=== PATIENT | female | born 1975 | race Caucasian/White ===

== ENCOUNTER → 2017-01-13 | Outpatient (CLI) | payer MEDICAID ==
--- NOTE | 2017-01-13 15:33 | US ---
EXAMINATION TYPE: US pelvic complete DATE OF EXAM: 01/13/2017 COMPARISON: NONE CLINICAL HISTORY: 41-year-old female N92.0 Excessive Or D25.9 Frequent Menstruation. History of uteri ne fibroids, 0 TECHNIQUE: Transabdominal (TA) Date of LMP: 01/04/2017 FINDINGS: Uterus: Anteverted measuring 18.7 x 9.4 x 15.8 cm. The uterus is enlarged and bulky with multiple fo deepthi fibroids throughout, largest measuring 7.4 cm. This largest fibroid is present posteriorly and ap pears to have mass effect on to the endometrium, possible submucosal component. Endometrial Stripe: 0.6 cm, within normal limits. Right Ovary: 2.9 x 2.0 x 2.3 cm with a 1.5 cm dominant follicle or functional cyst. Left Ovary: 4.9 x 2.7 x 3.3 cm with a 2.7 cm dominant follicle or functional cyst. No evident adnexal abnormality or cul-de-sac free fluid. IMPRESSION: 1. Bulky fibroid uterus with the largest fibroid measuring 7.4 cm. This is located posteriorly and ei ther has a submucosal component or has prominent mass effect on to the myometrium. Consider MRI for f ibroid mapping as indicated. 2. Physiologic changes in the ovaries.
== END | disposition home or self-care (01) ==
LOC: RADUSWWP 14:11
PROVIDERS: ATTEND Obstetrics & Gynecology
DX: D25.9 Leiomyoma of uterus, unspecified (principal)
CPT/HCPCS: 76856

== ENCOUNTER → 2017-04-07 | Outpatient (CLI) | payer MEDICAID ==
[2017-04-07 11:53] LABS: CH 28.1; CHCM 31.8; HDW 2.46; HGB 13.7 gm/dL (11.4-16.0); MCH 28.4 pg (25.0-35.0); MCHC 31.9 g/dL (31.0-37.0); Mean Platelet Volume 8.8; RBC 4.83 m/uL (3.80-5.40); RDW 14.9 % (11.5-15.5); WBC 10.4 k/uL (3.8-10.6); WBC (Perox) 11.47
[2017-04-07 11:58] LABS: Anion Gap 6 mmol/L; Blood Urea Nitrogen 8 mg/dL (7-17); Calcium 9.1 mg/dL (8.4-10.2); Carbon Dioxide 23 mmol/L (22-30); Chloride 109 mmol/L (98-107); Glucose 92 mg/dL (74-99); Non-African American GFR(MDRD) 54 (>60 ml/min/1.73 sqM); Potassium 4.7 mmol/L (3.5-5.1); Sodium 138 mmol/L (137-145)
[2017-04-07 14:11] LABS: Add Differential Manual Differential
[2017-04-07 14:14] LABS: Nucleated Red Blood Cells 0 /100 WBC (0-0); Total Cells Counted 100
== END ==
LOC: LABPAT 10:45
PROVIDERS: ATTEND Obstetrics & Gynecology
DX: Z01.812 Encounter for preprocedural laboratory examination (principal)
CPT/HCPCS: 36415; 80048; 85025

== ENCOUNTER 2017-04-12 05:53 | Inpatient (IN) | payer MEDICAID ==
[2017-04-08 09:59] VITALS: BMI 39.9
--- NOTE | 2017-04-09 13:37 | P.HPOB ---
History of Present Illness H&P Date: 04/09/17 Chief Complaint: fibroid uterus 41 year old G0 presents for total abdominal hysterectomy for fibroid uterus and menorrhagia. Review of Systems All systems: negative Constitutional: Denies chills, Denies fever Eyes: denies blurred vision, denies pain Ears, nose, mouth and throat: Denies headache, Denies sore throat Cardiovascular: Denies chest pain, Denies shortness of breath Respiratory: Denies cough Gastrointestinal: Denies abdominal pain, Denies diarrhea, Denies nausea, Denies vomiting Genitourinary: Denies dysuria, Denies hematuria Musculoskeletal: Denies myalgias Integumentary: Denies pruritus, Denies rash Neurological: Denies numbness, Denies weakness Psychiatric: Denies anxiety, Denies depression Endocrine: Denies fatigue, Denies weight change 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 Past Anesthesia/Blood Transfusion Reactions: No Reported Reaction Past Psychological History: Anxiety Smoking Status: Current every day smoker Past Alcohol Use History: None Reported Additional Past Alcohol Use History / Comment(s): Has smoked 1 PPD for last 10- 15 yrs. Past Drug Use History: None Reported - Past Family History Father Family Medical History: Cancer Mother Family Medical History: Deep Vein Thrombosis (DVT), Pulmonary Embolus Medications and Allergies Home Medications Medication Instructions Recorded Confirmed Type No Known Home Medications [No 04/08/17 04/08/17 History Known Home Medications] Allergies Allergy/AdvReac Type Severity Reaction Status Date / Time bupropion HCl Allergy Rash/Hives Verified 04/08/17 09:47 [From Wellbutrin] Exam Osteopathic Statement: *. No significant issues noted on an osteopathic structural exam other than those noted in the History and Physical/Consult. HEart: RRR Lungs: CTAB Abdomen: soft, nontender Extremeties: neg nichol's Assessment and Plan (1) Fibroid uterus Status: Acute Code(s): D25.9 - LEIOMYOMA OF UTERUS, UNSPECIFIED SNOMED Code( s): 83137170 Plan: 1. total abdominal hysterectomy.
[~2017-04-12 05:53] MED LIST: DEXAMETHASONE SOD PHOSPHATE 10 MG/ML 1 ML VIAL IV ONE; HYDROmorphone 0.5 MG/0.5 ML SYRINGE IVP PRN; MIDAZOLAM 2 MG/2 ML VIAL IV PRN; ONDANSETRON 4 MG/2 ML VIAL IVP ONE; ceFAZolin IN SWFI 2 GM/20 ML SYRINGE IVP ONE
[2017-04-12] MEDS ORDERED: LIDOCAINE 1% 20 ML VIAL (10MG/ML) FOR IV START INTRADERMA ONE (06:47)
[2017-04-12] MEDS: LACTATED RINGERS 1,000 ML IV SCH ×2 (06:47→21:13)
[2017-04-12] MEDS ORDERED: fentaNYL (PF) 50 MCG/ML 2 ML AMP ONE (07:18)
[2017-04-12] MEDS ORDERED: NEOSTIGMINE 1 MG/ML 10 ML VIAL ONE (07:18)
[2017-04-12] MEDS ORDERED: GLYCOPYRROLATE 0.2 MG/ML 2 ML VIAL ONE (07:18)
[2017-04-12] MEDS ORDERED: ROCURONIUM BROMIDE 10 MG/ML 10 ML VIAL IV ONE (07:18)
[2017-04-12] MEDS ORDERED: LIDOCAINE 1% INJ 10MG/ML (20 ML MDV) ONE (07:18)
[2017-04-12] MEDS ORDERED: HYDROmorphone (PF) 1 MG/ML ONE (07:18)
[2017-04-12] MEDS ORDERED: SUCCINYLCHOLINE CHLORIDE 100 MG/5 ML SYR IV ONE (07:18)
[2017-04-12] MEDS ORDERED: PROPOFOL 10 MG/ML 20 ML VIAL IV ONE (07:18)
[2017-04-12] MEDS ORDERED: MIDAZOLAM 2 MG/2 ML VIAL ONE (07:18)
[2017-04-12] MEDS ORDERED: SODIUM CHLORIDE 0.9% 50 ML with ceFAZolin 2,000 MG IV ONE ×2 (07:30)
--- NOTE | 2017-04-12 09:25 | P.OP ---
Date of Procedure: 04/12/17 Preoperative Diagnosis: 1. Fibroid uterus 2. Menorrhagia Postoperative Diagnosis: 1. Fibroid uterus 2. Menorrhagia 3. Right ovarian cyst Procedure(s) Performed: Total abdominal hysterectomy, aspiration of right ovarian cyst Anesthesia: HOMER Surgeon: Ana Maria Piedra General Ledger Accountant #1: Angel Luis Emery Estimated Blood Loss (ml): 300 IV fluids (ml): 1,500 Urine output (ml): 75 Pathology: other (Uterus, cervix) Condition: stable Disposition: PACU Operative Findings: Enlarged fibroid uterus, simple right ovarian cyst Description of Procedure: Patient is taken the operating room where general anesthesia was obtained without difficulty. She is prepped and draped in normal sterile fashion in dorsal supine position with. Urinary catheter was placed. Exam of the patient noted the uterus to be only up to the umbilicus. A vertical incision was made from just below the umbilicus to the suprapubic region. This was carried through the underlying cutaneous tissue to the fascia. The fascia was also incised in the midline and elevated with Silvana clamps and the rectus muscles were in the midline and the peritoneum was identified. The peritoneum was entered in a digital manner. The incision was extended superiorly and inferiorly with the Metzenbaums. The uterus was then delivered through the incision. Both ovaries appeared normal but there was a simple cyst on the right ovary. A hole was made in the right ovarian cyst and clear fluid was drained. Bilateral cornu were grasped with Padmini clamps for retraction. The uterus was noted to have several intramural and pedunculated and subserosal fibroids. The right utero-ovarian and round ligaments were clamped with the Estefania, cut and suture ligated. The broad ligament was taken down and then the uterine artery was clamped cut and suture ligated. This was then done on the left side as well where the left utero-ovarian and round ligaments were clamped with Estefania, cut and suture ligated. The broad ligament was taken down and the uterine artery was clamped cut and suture ligated. The bladder flap was then created using the Metzenbaums and the bladder was peeled off the underlying cervix. The broad ligament was continued to be taken down the level of the cervix by clamp cut and suture ligating bilaterally. The right uterosacral ligament was then clamped cut and suture ligated. The left uterosacral ligament was clamped cut and suture ligated. The uterus and cervix were amputated off the underlying vagina. Specimen was handed off. The vaginal cuff was grasped with Silvana clamps. The corners were reinforced with 0 Vicryl and then the rest of the vaginal cuff was closed with 0 Vicryl in a running locked fashion. The pelvis was irrigated. Some areas of oozing along the suture line were repaired with 0 Vicryl. Excellent hemostasis was assured. All instruments and sponges were removed and a good count was obtained. The peritoneum was reapproximated using 0 Vicryl in a running fashion. The fascia and muscles were closed together using 0 PDS looped stitch in a running fashion. The subcu tissues closed with 3-0 Vicryl in a running fashion. The skin was closed marie. Patient to our procedure well, sponge and instrument counts are correct 2. She was taken to recovery room in stable condition.
[2017-04-12] MEDS: HYDROmorphone 1 MG/ML 1 ML SYRINGE IVP PRN ×2 (09:30→09:38)
[2017-04-12] MEDS: fentaNYL (PF) 50 MCG/ML 2 ML AMP IV ONE ×2 (09:50→10:00)
[2017-04-12] MEDS ORDERED: ONDANSETRON 4 MG/2 ML VIAL IVP ONE (10:00)
[2017-04-12] MEDS ORDERED: ONDANSETRON 4 MG/2 ML VIAL IVP PRN (10:43)
[2017-04-12] MEDS ORDERED: diphenhydrAMINE 50 MG/ML 1 ML VIAL IVP PRN (10:43)
[2017-04-12] MEDS ORDERED: HYDROmorphone PCA 5 MG/25 ML SYRINGE IV PRN (10:43)
[2017-04-12] MEDS ORDERED: ZOLPIDEM 5 MG TAB PO PRN (10:43)
[2017-04-12] MEDS ORDERED: METOCLOPRAMIDE 5 MG/ML 2 ML VIAL IVP PRN (10:43)
[2017-04-12] MEDS ORDERED: NALOXONE 0.4 MG/ML 1 ML VIAL IV PRN (10:43)
[2017-04-12] MEDS ORDERED: SIMETHICONE 80 MG CHEWABLE PO PRN (10:43)
[2017-04-12] MEDS: NICOTINE 14MG/24HR PATCH TRANSDERM SCH (14:35)
[2017-04-12] MEDS: KETOROLAC 30 MG/ML 1 ML VIAL IVP PRN ×2 (14:58→22:13)
[2017-04-12] MEDS: SENNOSIDES-DOCUSATE SODIUM 1 EACH TAB PO SCH (21:13)
[2017-04-13] MEDS: KETOROLAC 30 MG/ML 1 ML VIAL IVP PRN ×2 (05:33→14:06)
[2017-04-13] MEDS: LACTATED RINGERS 1,000 ML IV SCH ×2 (05:34→18:01)
[2017-04-13 06:38] LABS: Basophils # (A) 0.1 k/uL (0-0.2); Basophils % (A) 0 %; CHCM 31.5; Eosinophils # (A) 0.1 k/uL (0-0.7); Eosinophils % (A) 1 %; HCT 39.2 % (34.0-46.0); HDW 2.48; HGB 12.4 gm/dL (11.4-16.0); Luc # (Auto) 0.16; Luc % (Auto) 1; Lymphocytes # (A) 4.4 k/uL (1.0-4.8); Lymphocytes % (A) 32 %; MCH 28.3 pg (25.0-35.0); MCHC 31.7 g/dL (31.0-37.0); MCV 89.5 fL (80.0-100.0); Mean Platelet Volume 8.3; Monocytes # (A) 0.8 k/uL (0-1.0); Monocytes % (A) 6 %; Neutrophils # (A) 8.1 k/uL (1.3-7.7); Neutrophils % (A) 60 %; RBC 4.38 m/uL (3.80-5.40); RDW 14.9 % (11.5-15.5); WBC 13.6 k/uL (3.8-10.6); WBC (Perox) 14.54
[2017-04-13] MEDS: SENNOSIDES-DOCUSATE SODIUM 1 EACH TAB PO SCH ×2 (08:31→20:43)
[2017-04-13] MEDS ORDERED: Acetaminophen-Codeine 300-30mg TAB PO PRN (09:39)
--- NOTE | 2017-04-13 10:01 | P.PN ---
Progress Note - Text Progress Note Date: 04/13/17 S/P LEONELA POD #1 Pt seen and examined. Pain controlled with SLOT HOST and toradol. Has ambulated to restroom and voided once. no flatus yet. Denies nausea vomiting, fever chills, chest pain, shortness of breath or calf pain. VSS HEart: RRR Lungs: mild crackles in left lung base abdomen: soft, nondistended, expected post op tenderness Incision: Clean, dry, intact with marie, some bruising noted at the inferior portion. Extremeties: neg nichol's labs: wbcs 13.6, hgb 12.4 A1. S/P LEONELA P1. increase ambulation 2. advance diet with flatus
[2017-04-13] MEDS: NICOTINE 14MG/24HR PATCH TRANSDERM SCH (14:07)
[2017-04-13] MEDS: Acetaminophen-Codeine 300-30mg TAB PO PRN (17:56)
[2017-04-13 22:03] VITALS: RESP 20
[2017-04-13] MEDS ORDERED: Acetaminophen-Codeine 300-30mg TAB ONE (23:13)
[2017-04-14] MEDS ORDERED: Acetaminophen-Codeine 300-30mg TAB ONE (03:20)
[2017-04-14] MEDS ORDERED: IBUPROFEN 600 MG TAB PO PRN (07:15)
[2017-04-14] MEDS: NICOTINE 14MG/24HR PATCH TRANSDERM SCH (08:12)
[2017-04-14 09:55] VITALS: BP 110/60; PULSE 85; TEMP 97.4
[2017-04-14] MEDS: Acetaminophen-Codeine 300-30mg TAB PO PRN (12:42)
--- NOTE | 2017-04-14 13:21 | P.DS ---
Providers Date of admission: 04/12/17 05:53 Expected date of discharge: 04/14/17 Attending physician: Ana Maria Piedra Primary care physician: Patrick Floyd - Discharge Diagnosis(es) (1) Fibroid uterus Current Visit: Yes Status: Resolved (2) Status post total abdominal hysterectomy Current Visit: Yes Status: Acute Hospital Course: Patient presented for total abdominal hysterectomy for fibroid uterus and menorrhagia. She underwent this procedure without complication. Postoperatively this she did quite well. Her pain was controlled first with a Dilaudid CUSTOMER SUPPORT EXECUTIVE and Toradol. She was changed to Tylenol 3 and Motrin postoperative day #1 and was tolerating clear liquids until she passed flatus or stretcher regular diet. She is ambulating and voiding without difficulty. She denies headache, fever, chills, nausea, vomiting, chest pain, shortness of breath or calf pain. Her incision is clean, dry, intact with marie. She'll have to follow up in my office in 1 week for staple removal. Discharge instructions were given. She is not to drive for 1 week. She knows not having intercourse or anything in her vagina for at least 6-8 weeks. She not to lift anything heavier than a gallon of milk for at least 2 weeks. I will see her in 1 week but she knows to call if there is any increase in fever, abnormal discharge or increase in bleeding. Patient Condition at Discharge: Stable Plan - Discharge Summary Discharge Rx Participant: Yes New Discharge Prescriptions: No Action No Known Home Medications [No Known Home Medications] Discharge Medication List No Known Home Medications [No Known Home Medications] 04/08/17 [History]
== END 2017-04-14 14:16 | disposition home or self-care (01) | DRG 743 ==
LOC: 2ORWHC 05:53 → 6PED 09:20
PROVIDERS: ADMIT Obstetrics & Gynecology; ATTEND Obstetrics & Gynecology
PROC: 0U900ZZ Drainage of Right Ovary, Open Approach (ICD-10-PCS; principal; 2017-04-12 07:30)
PROC: 0UT90ZZ Resection of Uterus, Open Approach (ICD-10-PCS; principal; 2017-04-12 07:30)
DX: D25.1 Intramural leiomyoma of uterus (principal); D25.2 Subserosal leiomyoma of uterus; F17.200 Nicotine dependence, unspecified, uncomplicated; N83.291 Other ovarian cyst, right side; N92.0 Excessive and frequent menstruation with regular cycle
CPT/HCPCS: 81025; 85025; 86850; 86900; 86901; 88307

== ENCOUNTER → 2020-03-25 | Outpatient (CLI) | payer MEDICAID ==
--- NOTE | 2020-03-27 10:07 | MM ---
Reason for exam: screening (asymptomatic). Last mammogram was performed 4 years and 3 months ago. History: Patient is nulliparous. Family history of breast cancer in maternal grandmother. Took hormonal contraceptives for 2 years beginning at age 19. Physical Findings: A clinical breast exam by your physician is recommended on an annual basis and results should be correlated with mammographic findings. MG 3D Screening Mammo W/Cad Bilateral CC and MLO view(s) were taken. Prior study comparison: January 07, 2016, bilateral MG 3d screening mammo w/cad. There are scattered fibroglandular densities. No significant changes when compared with prior studies. ASSESSMENT: Benign, BI-RAD 2 RECOMMENDATION: Routine screening mammogram of both breasts in 1 year.
== END | disposition home or self-care (01) ==
LOC: RADMAMWWP 12:03
PROVIDERS: ATTEND Obstetrics & Gynecology
DX: Z12.31 Encounter for screening mammogram for malignant neoplasm of breast (principal); Z80.3 Family history of malignant neoplasm of breast
CPT/HCPCS: 77063; 77067

== ENCOUNTER → 2021-03-18 | Outpatient (CLI) | payer MEDICAID, OTHER | END | disposition home or self-care (01) | LOC: LABWHC1 13:24 | PROVIDERS: ATTEND Emergency Medicine | DX: Z20.822 Contact with and (suspected) exposure to COVID-19 (principal) | CPT/HCPCS: 87635 ==

== ENCOUNTER → 2021-04-28 | Outpatient (CLI) | payer MEDICAID ==
[2021-04-28 10:56] LABS: Basophils # (A) 0.09 X 10*3/uL (0.00-0.10); Basophils % (A) 0.7 %; Eosinophils # (A) 0.14 X 10*3/uL (0.04-0.35); Eosinophils % (A) 1.1 %; HCT 47.4 % (37.2-46.3); HGB 15.2 g/dL (12.0-15.0); Lymphocytes # (A) 4.89 X 10*3/uL (0.90-5.00); MCHC 32.1 g/dL (32.0-37.0); MCV 87.3 fL (80.0-97.0); Mean Platelet Volume 10.4 fL (9.5-12.2); Monocytes # (A) 0.61 X 10*3/uL (0.20-1.00); Neutrophils # (A) 6.48 X 10*3/uL (1.80-7.70); Platelet Count 411 X 10*3/uL (140-440); RBC 5.43 X 10*6/uL (4.10-5.20); RDW 14.7 % (11.5-14.5); WBC 12.24 X 10*3/uL (4.50-10.00)
[2021-04-28 11:55] LABS: ALT 14 U/L (8-44); AST 16 U/L (13-35); African American GFR (CKD) 104.2 (60.0-200.0); Albumin 4.1 g/dL (3.8-4.9); Alkaline Phosphatase 132 U/L (41-126); BUN/Creat Ratio 6.69 Ratio (12.00-20.00); Blood Urea Nitrogen 5.3 mg/dL (9.0-27.0); Calcium 9.1 mg/dL (8.7-10.3); Carbon Dioxide 23.9 mmol/L (20.0-27.5); Chloride 101 mmol/L (96-109); Chol/HDL Ratio 4.84 Ratio; Globulin 2.6 g/dL (1.6-3.3); Glucose 99 mg/dL (70-110); LDL Cholesterol,Calculated 126.4 mg/dL (0.0-131.0); Luteinizing Hormone 18.8 mIU/mL; Non-African American GFR(CKD) 89.9 (60.0-200.0); Potassium 5.1 mmol/L (3.5-5.5); Sodium 135 mmol/L (135-145); Total Protein 6.6 g/dL (6.2-8.2)
== END | disposition home or self-care (01) ==
LOC: LABWHC1 06:47
PROVIDERS: ATTEND Nurse Practitioner Family
DX: Z00.00 Encounter for general adult medical examination without abnormal findings (principal); Z11.59 Encounter for screening for other viral diseases; F17.210 Nicotine dependence, cigarettes, uncomplicated; E66.9 Obesity, unspecified; E55.9 Vitamin D deficiency, unspecified; R23.2 Flushing; Z68.38 Body mass index [BMI] 38.0-38.9, adult
CPT/HCPCS: 36415; 80053; 80061; 82306; 82672; 83001; 83002; 84439; 84443; 85025; 86803

== ENCOUNTER 2021-05-13 07:03 | Emergency (ER) | payer MEDICAID ==
[2021-05-13 07:13] VITALS: RESP 18; TEMP 98.7
[2021-05-13 07:19] LABS: Glucose,Whole Blood 137 mg/dL (75-99)
[2021-05-13] MEDS ORDERED: SODIUM CHLORIDE 0.9% 1,000 ML IV STA (07:26)
[2021-05-13] MEDS ORDERED: ONDANSETRON ODT 4 MG TAB PO PRN (07:32)
[2021-05-13] MEDS ORDERED: ONDANSETRON 4 MG/2 ML VIAL IVP STA (07:33)
[2021-05-13] MEDS ORDERED: KETOROLAC 15 MG/ML 1 ML VIAL IVP STA (07:37)
--- NOTE | 2021-05-13 07:41 | ED ---
General Adult HPI - General Chief complaint: Fall Stated complaint: Fall, left ankle injury Time Seen by Provider: 05/13/21 07:10 Source: patient, RN notes reviewed, old records reviewed Mode of arrival: ambulatory Limitations: no limitations - History of Present Illness Initial comments: This is a 45-year-old female who got up this morning to go to work and she fell while going out to her car hurt her left knee ankle and foot. Patient states she did not feel lightheaded she didn't have a syncopal episode. Patient denied any chest pain palpitations difficulty breathing shortness of breath. Patient denies abdominal pain and denies nausea vomiting or diarrhea. Patient states when she went to get up the pain was quite bad she felt lightheaded so she had to call her mother and her mother finally brought to the hospital. Patient denies any head injury she denies headache patient denies neck pain she denies numbness weakness. Patient denies any back pain. Patient has no pain to the right leg or any of the upper extremities. Patient denies any hip pain. Patient's only complaint is left knee ankle and foot. Patient has a small abrasion to the inferior aspect of the left knee - Related Data Previous Rx's Medication Instructions Recorded Acetaminophen-Codeine 300-30mg 2 each PO Q6HR PRN #30 tab 04/14/17 [Tylenol w/codeine #3] Ibuprofen [Motrin] 600 mg PO Q6HR PRN #30 tab 04/14/17 Allergies Allergy/AdvReac Type Severity Reaction Status Date / Time bupropion HCl Allergy Rash/Hives Verified 04/12/17 09:30 [From Wellbutrin] Review of Systems ROS Statement: Those systems with pertinent positive or pertinent negative responses have been documented in the HPI. ROS Other: All systems not noted in ROS Statement are negative. 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 History of Any Multi-Drug Resistant Organisms: None Reported Past Surgical History: Cholecystectomy, Hysterectomy Additional Past Surgical History / Comment(s): tumor removed from back Past Anesthesia/Blood Transfusion Reactions: No Reported Reaction Past Psychological History: No Psychological Hx Reported Smoking Status: Current every day smoker Past Alcohol Use History: None Reported Past Drug Use History: None Reported - Past Family History Father Family Medical History: Cancer Mother Family Medical History: Deep Vein Thrombosis (DVT), Pulmonary Embolus General Exam - General Exam Comments Initial Comments: GENERAL: Patient is well-developed and well-nourished. Patient is nontoxic and well- hydrated and is in no acute distress. ENT: Neck is soft and supple. No significant lymphadenopathy is noted. Oropharynx is clear. Moist mucous membranes. Neck has full range of motion without eliciting any pain. EYES: The sclera were anicteric and conjunctiva were pink and moist. Extraocular movements were intact and pupils were equal round and reactive to light. Eyelids were unremarkable. PULMONARY: Unlabored respirations. Good breath sounds bilaterally. No audible rales rhonchi or wheezing was noted. CARDIOVASCULAR: There is a regular rate and rhythm without any murmurs gallops or rubs. ABDOMEN: Soft and nontender with normal bowel sounds. SKIN: Skin is clear with no lesions or rashes and otherwise unremarkable. NEUROLOGIC: Patient is alert and oriented x3. Cranial nerves II through XII are grossly intact. Motor and sensory are also intact. Normal speech, volume and content. Symmetrical smile. MUSCULOSKELETAL: Patient's upper extremities no injury full range of motion. Patient's right lower extremity had full range of motion at the hip and knee and ankle. Patient has a small abrasion just inferior to the left knee and patient has pain with movement of the knee ankle and foot the lateral aspect of the foot is the most painful area. LYMPHATICS: No significant lymphadenopathy is noted PSYCHIATRIC: Normal psychiatric evaluation. Limitations: no limitations Course Vital Signs 05/13/21 05/13/21 05/13/21 07:08 07:27 08:30 Temperature 98.7 F Pulse Rate 62 80 85 Respiratory 18 18 18 Rate Blood Pressure 58/35 97/57 99/65 O2 Sat by Pulse 98 96 98 Oximetry 05/13/21 08:58 Temperature Pulse Rate 82 Respiratory 18 Rate Blood Pressure 101/68 O2 Sat by Pulse 99 Oximetry Procedures - Orthopedic Splinting/Casting Injury #1 Side: left Lower Extremity Injury Location: short leg Lower Extremity Immobilizer: posterior splint Medical Decision Making - Medical Decision Making EKG shows a normal sinus rhythm at 81 bpm VA interval is 148 QRS is 74 QT interval 392 QTC is 455. Patient's EKG shows no ST segment elevation or depression. X-ray of the knee shows no acute abnormality. X-ray of the ankle shows no acute abnormality. X-ray of the foot shows a distal calcaneal avulsion fracture. I splinted the leg with the posterior splint. There was a short leg splint - Lab Data Result diagrams: 05/13/21 07:31 05/13/21 07:31 Lab Results 05/13/21 05/13/21 05/13/21 Range/Units 07:17 07:31 07:31 WBC 13.4 H (3.8-10.6) k/uL RBC 5.19 (3.80-5.40) m/uL Hgb 15.6 (11.4-16.0) gm/dL Hct 47.0 H (34.0-46.0) % MCV 90.7 (80.0-100.0) fL MCH 30.0 (25.0-35.0) pg MCHC 33.1 (31.0-37.0) g/dL RDW 14.2 (11.5-15.5) % Plt Count 432 (150-450) k/uL MPV 8.8 Neutrophils % 42 % Lymphocytes % 47 % Monocytes % 5 % Eosinophils % 2 % Basophils % 1 % Neutrophils # 5.6 (1.3-7.7) k/uL Lymphocytes # 6.4 H (1.0-4.8) k/uL Monocytes # 0.7 (0-1.0) k/uL Eosinophils # 0.2 (0-0.7) k/uL Basophils # 0.1 (0-0.2) k/uL Manual Slide Review Performed RBC Morphology Normal Sodium 136 L (137-145) mmol/L Potassium 4.1 (3.5-5.1) mmol/L Chloride 104 (98-107) mmol/L Carbon Dioxide 22 (22-30) mmol/L Anion Gap 10 mmol/L BUN 6 L (7-17) mg/dL Creatinine 0.90 (0.52-1.04) mg/dL Est GFR (CKD-EPI)AfAm 89 (>60 ml/min/1.73 sqM) Est GFR (CKD-EPI)NonAf 77 (>60 ml/min/1.73 sqM) Glucose 153 H (74-99) mg/dL POC Glucose (mg/dL) 137 H (75-99) mg/dL POC Glu Warehouse Incentive Selector ID Svacha, II, [place] Calcium 8.8 (8.4-10.2) mg/dL Magnesium 2.1 (1.6-2.3) mg/dL Total Bilirubin 0.4 (0.2-1.3) mg/dL AST 21 (14-36) U/L ALT 15 (4-34) U/L Alkaline Phosphatase 117 (38-126) U/L Troponin I (0.000-0.034) ng/mL Total Protein 6.7 (6.3-8.2) g/dL Albumin 3.7 (3.5-5.0) g/dL 05/13/21 Range/Units 07:31 WBC (3.8-10.6) k/uL RBC (3.80-5.40) m/uL Hgb (11.4-16.0) gm/dL Hct (34.0-46.0) % MCV (80.0-100.0) fL MCH (25.0-35.0) pg MCHC (31.0-37.0) g/dL RDW (11.5-15.5) % Plt Count (150-450) k/uL MPV Neutrophils % % Lymphocytes % % Monocytes % % Eosinophils % % Basophils % % Neutrophils # (1.3-7.7) k/uL Lymphocytes # (1.0-4.8) k/uL Monocytes # (0-1.0) k/uL Eosinophils # (0-0.7) k/uL Basophils # (0-0.2) k/uL Manual Slide Review RBC Morphology Sodium (137-145) mmol/L Potassium (3.5-5.1) mmol/L Chloride (98-107) mmol/L Carbon Dioxide (22-30) mmol/L Anion Gap mmol/L BUN (7-17) mg/dL Creatinine (0.52-1.04) mg/dL Est GFR (CKD-EPI)AfAm (>60 ml/min/1.73 sqM) Est GFR (CKD-EPI)NonAf (>60 ml/min/1.73 sqM) Glucose (74-99) mg/dL POC Glucose (mg/dL) (75-99) mg/dL POC Glu Warehouse [employer] Selector ID Calcium (8.4-10.2) mg/dL Magnesium (1.6-2.3) mg/dL Total Bilirubin (0.2-1.3) mg/dL AST (14-36) U/L ALT (4-34) U/L Alkaline Phosphatase (38-126) U/L Troponin I <0.012 (0.000-0.034) ng/mL Total Protein (6.3-8.2) g/dL Albumin (3.5-5.0) g/dL Disposition Clinical Impression: Fall, Vasovagal episode, Calcaneal fracture Disposition: HOME SELF-CARE Instructions (If sedation given, give patient instructions): Fall Prevention (ED), Calcaneal Fracture (ED) Is patient prescribed a controlled substance at d/c from ED?: No Referrals: Patrick Floyd MD [Primary Care Provider] - 1-2 days Time of Disposition: 10:40
--- NOTE | 2021-05-13 08:24 | XR ---
EXAMINATION TYPE: XR knee complete 3 views LT, XR foot complete 3 views LT, XR ankle complete 3 views LT DATE OF EXAM: 05/13/2021 COMPARISON: None HISTORY: 45-year-old female trauma, fall, pain FINDINGS: Left knee: No acute fracture, subluxation, or dislocation. Extensor mechanism is intact. No knee joint effusion. Ankle: Ankle mortise is congruent with preservation of the distal tibiofibular overlap. Talar dome is intact . Subtalar joint align. Tiny plantar calcaneal spur. Smooth delineation of the Achilles tendon. No ac big sandy fracture, subluxation, or dislocation. Ossific density lateral aspect of the calcaneus seen on th e AP view further elaborated below. Foot: There is a 5 mm ossific density along the lateral margin of the distal calcaneus seen only on the AP view. Otherwise, no acute fracture, subluxation, or dislocation. IMPRESSION: 1. Left knee: No acute osseous abnormality seen. 2. Left ankle: No acute osseous abnormality seen. 3. Left foot: 5 mm bone fragment along the lateral margin of the distal calcaneus seen only on the AP view. Correlate for point tenderness here to exclude a small chip fracture versus avulsion fracture at the origin of the extensor digitorum brevis.
--- NOTE | 2021-05-13 08:25 | XR ---
EXAMINATION TYPE: XR chest 2V DATE OF EXAM: 05/13/2021 COMPARISON: None HISTORY: 45-year-old female with fall this morning, chest pain TECHNIQUE: AP and lateral views FINDINGS: The cardiomediastinal silhouette, aorta, and pulmonary vasculature are within normal limits. Hazy mid to lower lung densities relating to overlying soft tissue. No osiris consolidation. No pneumothorax o r pleural effusion. IMPRESSION: Large patient body habitus. No acute process seen.
[2021-05-13 08:44] LABS: Basophils # (A) 0.1 k/uL (0-0.2); Basophils % (A) 1 %; Eosinophils # (A) 0.2 k/uL (0-0.7); Eosinophils % (A) 2 %; HGB 15.6 gm/dL (11.4-16.0); Lymphocytes # (A) 6.4 k/uL (1.0-4.8); Lymphocytes % (A) 47 %; MCHC 33.1 g/dL (31.0-37.0); MCV 90.7 fL (80.0-100.0); Mean Platelet Volume 8.8; Monocytes # (A) 0.7 k/uL (0-1.0); Monocytes % (A) 5 %; Neutrophils # (A) 5.6 k/uL (1.3-7.7); Neutrophils % (A) 42 %; Platelet Count 432 k/uL (150-450); RBC 5.19 m/uL (3.80-5.40); RDW 14.2 % (11.5-15.5); WBC 13.4 k/uL (3.8-10.6)
[2021-05-13 08:53] LABS: Albumin 3.7 g/dL (3.5-5.0); Calcium 8.8 mg/dL (8.4-10.2); Magnesium 2.1 mg/dL (1.6-2.3); Potassium 4.1 mmol/L (3.5-5.1); Total Bilirubin 0.4 mg/dL (0.2-1.3); Total Protein 6.7 g/dL (6.3-8.2)
[2021-05-13 11:06] VITALS: BP 112/83; PULSE 88
== END 2021-05-13 11:06 | disposition home or self-care (01) ==
LOC: EC 07:03
DX: S92.002A Unspecified fracture of left calcaneus, initial encounter for closed fracture (principal); R55 Syncope and collapse; F17.200 Nicotine dependence, unspecified, uncomplicated; Z90.49 Acquired absence of other specified parts of digestive tract; Z90.710 Acquired absence of both cervix and uterus; W01.0XXA Fall on same level from slipping, tripping and stumbling without subsequent striking against object, initial encounter
CPT/HCPCS: 99284; 96374; 96375; 96361 ×2; 29515; 36415; 93005; 80053; 83735; 84484; 85025; 73562; 73610; 73630; 71046; J2405; J1885

== ENCOUNTER → 2021-05-22 | Outpatient (CLI) | payer MEDICAID ==
[2021-05-22 12:05] LABS: T4, Free (Free Thyroxine) 1.02 ng/dL (0.800-1.800)
== END | disposition home or self-care (01) ==
LOC: LABWHC1 07:16
PROVIDERS: ATTEND Nurse Practitioner Family
DX: E55.9 Vitamin D deficiency, unspecified (principal); E03.9 Hypothyroidism, unspecified
CPT/HCPCS: 36415; 82306; 84439; 84443

== ENCOUNTER → 2021-06-07 | Outpatient (CLI) | payer MEDICAID, OTHER | END | disposition home or self-care (01) | LOC: LABWHC1 06:32 | PROVIDERS: ATTEND Emergency Medicine | DX: U07.1 COVID-19 (principal) | CPT/HCPCS: 87635 ==

== ENCOUNTER → 2021-06-10 | Outpatient (CLI) | payer MEDICAID, OTHER ==
[~2021-06-10] MED LIST changes: +CASIRIVIMAB (REGN10933) (EUA) 600 MG, IMDEVIMAB (REGN10987) (EUA) 600 MG in SODIUM CHLO... IVPB ONE; -DEXAMETHASONE SOD PHOSPHATE 10 MG/ML 1 ML VIAL IV ONE; -HYDROmorphone 0.5 MG/0.5 ML SYRINGE IVP PRN; -MIDAZOLAM 2 MG/2 ML VIAL IV PRN; -ONDANSETRON 4 MG/2 ML VIAL IVP ONE; +SODIUM CHLORIDE 0.9% 50 ML IVPB ONE; +SODIUM CHLORIDE 0.9% 500 ML 500 ML in EMPTY BAG 1 BAG IV PRN; -ceFAZolin IN SWFI 2 GM/20 ML SYRINGE IVP ONE
[2021-06-10 08:21] VITALS: RESP 16; TEMP 97.7
[2021-06-10 09:19] VITALS: BP 105/75; PULSE 80
== END ==
LOC: PROCWHC3 07:55
PROVIDERS: ATTEND Nurse Practitioner Family
DX: U07.1 COVID-19 (principal); E66.9 Obesity, unspecified; Z68.41 Body mass index [BMI] 40.0-44.9, adult; F17.200 Nicotine dependence, unspecified, uncomplicated; Z88.8 Allergy status to other drugs, medicaments and biological substances
CPT/HCPCS: 96360; Q0244; M0243

== ENCOUNTER → 2021-12-19 | Outpatient (CLI) | payer MEDICAID ==
[2021-12-19 11:19] LABS: ALT 13 U/L (8-44); AST 19 U/L (13-35); Albumin 3.9 g/dL (3.8-4.9); Albumin/Globulin Ratio 1.33 (1.60-3.17); Alkaline Phosphatase 128 U/L (41-126); BUN/Creat Ratio 7.52 Ratio (12.00-20.00); Blood Urea Nitrogen 6.4 mg/dL (9.0-27.0); Calcium 9.1 mg/dL (8.7-10.3); Chloride 104 mmol/L (96-109); Globulin 2.9 g/dL (1.6-3.3); Glucose 100 mg/dL (70-110); LDL Cholesterol,Calculated 119.7 mg/dL (0.0-131.0); Non-African American GFR(CKD) 81.1 (60.0-200.0); Potassium 3.9 mmol/L (3.5-5.5); Sodium 138 mmol/L (135-145); Total Protein 6.8 g/dL (6.2-8.2)
[2021-12-19 11:28] LABS: Basophils # (A) 0.11 X 10*3/uL (0.00-0.10); Basophils % (A) 0.9 %; Eosinophils # (A) 0.22 X 10*3/uL (0.04-0.35); Eosinophils % (A) 1.8 %; HCT 48.6 % (37.2-46.3); HGB 15.5 g/dL (12.0-15.0); Immature Grans, Automated 0.3 %; Lymphocytes # (A) 4.99 X 10*3/uL (0.90-5.00); Lymphocytes % (A) 40.4 %; MCH 28.4 pg (27.0-32.0); MCHC 31.9 g/dL (32.0-37.0); MCV 89.2 fL (80.0-97.0); Monocytes # (A) 0.83 X 10*3/uL (0.20-1.00); Monocytes % (A) 6.7 %; NRBC Per 100 WBC 0 /100 WBCS (0.0-0.0); Neutrophils # (A) 6.15 X 10*3/uL (1.80-7.70); Neutrophils % (A) 49.9 %; Platelet Count 360 X 10*3/uL (140-440); RBC 5.45 X 10*6/uL (4.10-5.20); WBC 12.34 X 10*3/uL (4.50-10.00)
== END | disposition home or self-care (01) ==
LOC: LABWHC1 07:20
PROVIDERS: ATTEND Family Medicine
DX: Z00.00 Encounter for general adult medical examination without abnormal findings (principal); E03.9 Hypothyroidism, unspecified; Z68.39 Body mass index [BMI] 39.0-39.9, adult; R79.89 Other specified abnormal findings of blood chemistry; F41.9 Anxiety disorder, unspecified; E66.9 Obesity, unspecified; E55.9 Vitamin D deficiency, unspecified; F17.210 Nicotine dependence, cigarettes, uncomplicated
CPT/HCPCS: 36415; 80053; 80061; 82306; 84439; 84443; 85025

== ENCOUNTER → 2023-03-01 | Outpatient (CLI) | payer MEDICAID | END | disposition home or self-care (01) | LOC: RADXRMAIN 23:02 | PROVIDERS: ATTEND Nurse Practitioner Family | DX: Z53.9 Procedure and treatment not carried out, unspecified reason (principal) ==

== ENCOUNTER → 2024-06-25 | Outpatient (CLI) | payer MEDICAID ==
[2024-06-26 00:31] LABS: Basophils # (A) 0.1 k/uL (0-0.2); Basophils % (A) 1 %; Eosinophils # (A) 0.2 k/uL (0-0.7); Eosinophils % (A) 2 %; HCT 45.4 % (34.0-46.0); Lymphocytes # (A) 6.1 k/uL (1.0-4.8); Lymphocytes % (A) 47 %; MCH 28.8 pg (25.0-35.0); MCV 87.2 fL (80.0-100.0); Mean Platelet Volume 10.7; Monocytes # (A) 0.6 k/uL (0-1.0); Monocytes % (A) 4 %; Neutrophils # (A) 5.7 k/uL (1.3-7.7); Neutrophils % (A) 45 %; Platelet Count 381 k/uL (150-450); RBC 5.21 m/uL (3.80-5.40); RDW 14.4 % (11.5-15.5); WBC 12.9 k/uL (3.8-10.6)
[2024-06-26 02:52] LABS: Tear Drop Cells Present
[2024-06-26 09:07] LABS: ALT 19 U/L (8-44); AST 20 U/L (13-35); Albumin/Globulin Ratio 1.43 Ratio (1.60-3.17); Alkaline Phosphatase 146 U/L (41-126); BUN/Creat Ratio 7.78 Ratio (12.00-20.00); Calcium 9.4 mg/dL (8.7-10.3); Carbon Dioxide 24.2 mmol/L (21.6-31.8); Chloride 105 mmol/L (96-109); Chol/HDL Ratio 5.53 Ratio; Estradiol <20.0 pg/mL; Globulin 2.8 g/dL (1.6-3.3); Glucose 98 mg/dL (70-110); LDL Cholesterol,Calculated 102.8 mg/dL (0.0-131.0); Potassium 4.5 mmol/L (3.5-5.5); Sodium 140 mmol/L (135-145); T4, Free (Free Thyroxine) 0.79 ng/dL (0.80-1.80); Total Bilirubin <0.2 mg/dL (0.3-1.2); Total Protein 6.8 g/dL (6.2-8.2)
[2024-06-26 10:37] LABS: Follicle Stimulating Hormone 55.8 mIU/mL; Luteinizing Hormone 20.9 mIU/mL
== END | disposition home or self-care (01) ==
LOC: LABMAIN 20:26
PROVIDERS: ATTEND Family Medicine
DX: Z00.00 Encounter for general adult medical examination without abnormal findings (principal); Z12.31 Encounter for screening mammogram for malignant neoplasm of breast; E03.9 Hypothyroidism, unspecified; R63.5 Abnormal weight gain; R53.83 Other fatigue
CPT/HCPCS: 80053; 80061; 82306; 82533; 82670; 83001; 83002; 84439; 84443; 85025